=== PATIENT | male | born 1970 | race Caucasian/White ===

== ENCOUNTER 2018-04-24 15:49 | Outpatient (CLI) | payer BC ==
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
== END 2018-04-24 15:50 | disposition home or self-care (01) ==
LOC: SCSRAD 15:49
PROVIDERS: ATTEND Nurse Practitioner Family
DX: S20.212D Contusion of left front wall of thorax, subsequent encounter (principal)
CPT/HCPCS: 71110